=== PATIENT | male | born 1945 | race Caucasian/White ===

== ENCOUNTER 2018-07-17 15:47 | Outpatient (CLI) | payer OTHER ==
[~2018-07-17 15:47] MED LIST: AMBIEN10 MG PO; CIPRO750 MG PO; Colace 100MG PO; PERCOCET 5/3251 TAB PO
== END 2018-07-17 15:52 | disposition home or self-care (01) ==
LOC: RAD 15:47
DX: M51.36 Other intervertebral disc degeneration, lumbar region (principal); Z98.1 Arthrodesis status; M62.830 Muscle spasm of back

== ENCOUNTER 2019-03-12 07:12 | Outpatient (CLI) | payer OTHER | END 2019-03-12 07:20 | disposition home or self-care (01) | LOC: NUCLEAR 07:12 | DX: D35.1 Benign neoplasm of parathyroid gland (principal) | CPT/HCPCS: 78072; A9500 ==

== ENCOUNTER 2019-04-02 13:00 | Outpatient (CLI) | payer OTHER | END 2019-04-02 13:14 | disposition home or self-care (01) | LOC: NUCLEAR 13:00 | DX: M81.0 Age-related osteoporosis without current pathological fracture (principal); M85.80 Other specified disorders of bone density and structure, unspecified site ==

== ENCOUNTER → 2021-12-17 | Outpatient (CLI) | payer OTHER | END | disposition home or self-care (01) | LOC: SONOGRAMA 07:13 | DX: K74.69 Other cirrhosis of liver (principal) ==

== ENCOUNTER 2022-05-25 07:16 | Outpatient (CLI) | payer OTHER | END 2022-05-25 07:21 | disposition home or self-care (01) | LOC: SONOGRAMA 07:16 | DX: K74.69 Other cirrhosis of liver (principal) ==

== ENCOUNTER 2023-01-11 07:11 | Outpatient (CLI) | payer OTHER | END 2023-01-11 07:12 | disposition home or self-care (01) | LOC: SONOGRAMA 07:11 | DX: K70.9 Alcoholic liver disease, unspecified (principal) ==

== ENCOUNTER 2023-04-27 07:46 | Outpatient (CLI) | payer OTHER | END 2023-04-27 07:58 | disposition home or self-care (01) | LOC: SONOGRAMA 07:46 | PROVIDERS: ATTEND Urology | DX: N40.1 Benign prostatic hyperplasia with lower urinary tract symptoms (principal) ==

== ENCOUNTER 2024-01-04 09:16 | Outpatient (CLI) | payer OTHER | END 2024-01-04 09:18 | disposition home or self-care (01) | LOC: NUCLEAR 09:16 | PROVIDERS: ATTEND Internal Medicine Endocrinology, Diabetes & Metabolism | DX: M81.0 Age-related osteoporosis without current pathological fracture (principal) ==

== ENCOUNTER 2025-04-09 12:11 | Outpatient (CLI) | payer OTHER | END 2025-04-09 12:14 | disposition home or self-care (01) | LOC: SONOGRAMA 12:11 | PROVIDERS: ATTEND Internal Medicine Endocrinology, Diabetes & Metabolism | DX: E04.1 Nontoxic single thyroid nodule (principal) ==